=== PATIENT | female | born 2005 | race African-American/Black ===

== ENCOUNTER 2025-03-20 17:23 | Emergency (ER) | payer MEDICAID ==
[~2025-03-20] VITALS: Ht 162.6 cm; Wt 63.0 kg
[2025-03-20 17:30] VITALS: TEMP 37; O2SAT 99
[2025-03-20 21:24] VITALS: TEMP 98.6
[2025-03-20] MEDS: ACETAMINOPHEN 500MG TABLET PO ONE (21:24)
[2025-03-20 22:37] LABS: INFLUENZA TYPE A Presumptive Negative (Pres. Neg.)
[2025-03-20 22:38] LABS: INFLUENZA TYPE B Presumptive Negative (Pres. Neg.)
[2025-03-20] MEDS ORDERED: AMOX1TAB16 MT (23:03)
[2025-03-20 23:23] VITALS: BP 116/79; PULSE 89; RESP 18; O2SAT 98
== END 2025-03-20 23:30 | disposition home or self-care (01) ==
LOC: ER 17:23
DX: J32.9 Chronic sinusitis, unspecified (principal); J45.909 Unspecified asthma, uncomplicated; Z20.822 Contact with and (suspected) exposure to COVID-19
CPT/HCPCS: 71045; 87426; 87804; 99284